=== PATIENT | female | born 1980 | race African-American/Black ===

== ENCOUNTER 2016-06-22 19:24 | Emergency (ER) | payer MEDICARE | END 2016-06-22 21:05 | disposition home or self-care (01) | LOC: D.ER 19:24 | DX: S93.402A Sprain of unspecified ligament of left ankle, initial encounter (principal); W01.0XXA Fall on same level from slipping, tripping and stumbling without subsequent striking against object, initial encounter; Y93.89 Activity, other specified; Y92.89 Other specified places as the place of occurrence of the external cause; S39.012A Strain of muscle, fascia and tendon of lower back, initial encounter; G61.81 Chronic inflammatory demyelinating polyneuritis; F32.9 Major depressive disorder, single episode, unspecified; E11.9 Type 2 diabetes mellitus without complications; G62.9 Polyneuropathy, unspecified ==

== ENCOUNTER 2016-09-02 16:37 | Observation (INO) | payer MEDICARE ==
[~2016-09-02] VITALS: Ht 170.2 cm; Wt 131.1 kg
--- NOTE | 2016-09-02 17:15 | NUR ---
RECEIVED TO ROOM 2230 DIRECT ADMIT FROM DOCTOR'S OFFICE. GENERALIZED WEAKNESS. FAMILY AT BEDSIDE.
[2016-09-02] MEDS ORDERED: OMEPRAZOLE20 M1 PO (17:42)
[2016-09-02] MEDS ORDERED: CYCLOBENZAPRINE10 MG (17:43)
[2016-09-02] MEDS ORDERED: JANUVIA100 MG PO (17:43)
[2016-09-02] MEDS ORDERED: NEURONTIN600 MG PO (17:44)
[2016-09-02] MEDS ORDERED: CYMBALTA60 MG PO (17:45)
[2016-09-02] MEDS ORDERED: XANAX2 MG PO (17:45)
[2016-09-02] MEDS ORDERED: LATUDA40 MG (17:46)
[2016-09-02] MEDS ORDERED: COREG 3.1253.125 MG PO (17:47)
[2016-09-02] MEDS ORDERED: ULTRAM50 MG PO (17:47)
[2016-09-02] MEDS ORDERED: BUPROPION XL300 MG PO (17:48)
[2016-09-02] MEDS ORDERED: MECLIZINE HCL25 MG PO (17:48)
[2016-09-02] MEDS ORDERED: TOPAMAX25 MG PO (17:49)
[2016-09-02] MEDS ORDERED: SYNALAR 0.01 %60 ML TOPICAL (17:50)
[2016-09-02] MEDS ORDERED: LIDOCAINE 5 % O35 GM TOPICAL (17:50)
[2016-09-02 18:00] VITALS: BP 131/73; BMI 45.4
[2016-09-02 18:22] LABS: BASOPHILS 0.4 % (0-2); EOSINOPHILS 2.3 % (0-7); HEMOGLOBIN 10.3 g/dL (12-16); IMMATURE GRANULOCYTES 0.3 % (0-5); LYMPHOCYTES 35.2 % (15-50); MCH 20.2 pg (26.0-34.0); MCHC 31.2 g/dL (31.0-37.0); MCV 64.7 fL (80.0-100.0); MONOCYTES 7.6 % (2-11); NEUTROPHILS 54.2 % (40-80); PLATELET COUNT 336 10x3/uL (130-400); RDW 17.9 % (11.5-14.5); WBC 11.2 10x3/uL (4.8-10.8)
[2016-09-02 18:25] LABS: ALBUMIN 3.2 g/dL (3.4-5.0); ALKALINE PHOSPHATASE 115 U/L (46-116); BILIRUBIN - TOTAL 0.15 mg/dL (0.2-1.3); CALC OSMOLALITY 266 mosm/kg (275-300); CALCIUM 8.6 mg/dL (8.5-10.1); CARBON DIOXIDE 22.7 mmol/L (21.0-32.0); CHLORIDE - SERUM 103 mmol/L (98-107); CREATININE - SERUM 0.9 mg/dL (0.6-1.3); GLUCOSE 112 mg/dL (74-106); POTASSIUM - SERUM 3.5 mmol/L (3.5-5.1); PROTEIN - SERUM 7.5 g/dL (6.4-8.2); SODIUM 133 mmol/L (136-145); UREA NITROGEN 13 mg/dL (7-18); eGFR NON AFRICAN AMERICAN 75 mL/min (90-120)
--- NOTE | 2016-09-02 18:30 | NUR ---
CONSULT CALLED TO DR JULIO. DENTAL AIDE SHOWING SR 91 PER TECH.
[2016-09-02 18:44] LABS: ALT (SGPT) 23 U/L (10-68)
[2016-09-02 19:00] VITALS: BP 126/86
--- NOTE | 2016-09-02 19:30 | NUR ---
RECIEVED SHIFT REPORT. PT IS LYING IN BED. ALERT AND ORIENTED AND ABLE TO VERBALIZE NEEDS. IV TO BE SITED BY DAY NURSE. PT IS AMBULATORY WITH ASSISTANCE. PT STATES PAIN IS 8/10. PT REQUESTING SOMETHING FOR PAIN. WILL CALL MD FOUR H AGENT. NO FURTHER NEEDS AT THIS TIME. VISITOR AT BEDSIDE. WILL CONTINUE TO MONITOR. SIDE RAILS ARE UP X 2. BED IS IN LOWEST POSITION. BOX ALARM PLACED ON FOR SAFETY. CALL LIGHT IS WITHIN REACH.
--- NOTE | 2016-09-02 20:46 | NUR ---
SHIFT ASSESSMENT COMPLETED. FLUIDS HOOKED UP PER ORDER. MEDICATIONS ADMINISTERED PER ORDER. PT C/O PAIN 10/30. ADMINISTERED PRESCRIBED PRN ULTRAM PER ORDER. DENIES FURTHER NEEDS AT THIS TIME. WILL MONITOR. SIDE RAILS X 2. BED LOW. BOX ALARM ON. VISITOR AT BEDSIDE. CALL LIGHT IN REACH.
[2016-09-03] VITALS: BP 104/62
[2016-09-03 04:00] VITALS: BP 132/87
[2016-09-03 05:18] LABS: BASOPHILS 0.1 % (0-2); EOSINOPHILS 0 % (0-7); HEMATOCRIT 33.8 % (36.0-48.0); HEMOGLOBIN 10.5 g/dL (12-16); IMMATURE GRANULOCYTES 0.4 % (0-5); LYMPHOCYTES 10.4 % (15-50); MCHC 31.1 g/dL (31.0-37.0); MCV 64.3 fL (80.0-100.0); MONOCYTES 0.7 % (2-11); NEUTROPHILS 88.4 % (40-80); PLATELET COUNT 340 10x3/uL (130-400); RBC 5.26 10x6/uL (4.00-5.40); RDW 17.7 % (11.5-14.5); WBC 10.2 10x3/uL (4.8-10.8)
[2016-09-03 05:44] LABS: ALBUMIN 3.3 g/dL (3.4-5.0); ALKALINE PHOSPHATASE 109 U/L (46-116); ALT (SGPT) 25 U/L (10-68); CALCIUM 8.7 mg/dL (8.5-10.1); CHLORIDE - SERUM 103 mmol/L (98-107); CREATININE - SERUM 0.9 mg/dL (0.6-1.3); PROTEIN - SERUM 8.2 g/dL (6.4-8.2); SODIUM 135 mmol/L (136-145); UREA NITROGEN 14 mg/dL (7-18); eGFR NON AFRICAN AMERICAN 75 mL/min (90-120)
[2016-09-03 05:50] LABS: CALC OSMOLALITY 278 mosm/kg (275-300); GLUCOSE 236 mg/dL (74-106); POTASSIUM - SERUM 4.2 mmol/L (3.5-5.1)
[2016-09-03 07:57] VITALS: BP 140/77
--- NOTE | 2016-09-03 07:58 | NUR ---
PT AOX4 RESP EVEN AND NONLABORED PT DENIES NEEDS AT THIS TIME IV TO RIGHT HAND PATENT AND INTACT SRX2 BED AT LOWEST SETTING CALL LIGHT WITHIN REACH WILL CONTINUE TO MONITOR
[2016-09-03 08:03] LABS: APPEARANCE CLEAR (CLEAR); BILIRUBIN NEGATIVE (NEGATIVE); COLOR YELLOW (YELLOW); GLUCOSE 100 mg/dL (NEGATIVE); KETONE NEGATIVE (NEGATIVE); LEUKOCYTE ESTERASE NEGATIVE (NEGATIVE); NITRITE NEGATIVE (NEGATIVE); PROTEIN NEGATIVE (NEGATIVE); SPECIFIC GRAVITY 1.015 (1.005-1.020); UROBILINOGEN NORMAL (NORMAL)
[2016-09-03 11:35] VITALS: BP 132/68
[2016-09-03 11:51] VITALS: BP 132/68
[2016-09-03 14:38] VITALS: Ht 170.2 cm; Wt 131.1 kg
[2016-09-03 15:37] VITALS: BP 128/64
--- NOTE | 2016-09-03 16:02 | NUR ---
Patient Name: WONG MILES Admission Status: Urgent Accout number: [id number] Admission Date: 09-02-2016 : 1980 Admission Diagnosis:WEAKNESS Attending: JORGE Current LOS: 1 Anticipated DC Date: 09-04-2016 Planned Disposition: Inpatient Rehab Primary Insurance: MEDICARE A & B Discharge Planning Comments: CM MET WITH PATIENT REGARDING D/C NEEDS AND PLANS. PATIENT STATED SHE LIVES WITH HER MOM THAT IS DISABLED AND WILL HAVE SOMEONE PICK HER UP AT DISCHARGE. PATIENT STATES SHE HAS BEEN FALLING AT HOME LATELY. PATIENTS PCP IS DR. WALKER AND PHARMACY IS [facility] ON [address]. PATIENT HAS AN ELEC. WHEELCHAIR, SHOWER CHAIR, BSC, CANE, WALKER, AND GLUCOMETER AT HOME. PATIENT HAS A REFERRAL IN FOR IP REHAB. CM WILL CONTINUE TO FOLLOW PATIENT WITH D/C NEEDS AND PLANS. PCP DR. DENISE SNELL ON [facility]) [phone] Transportation Engineering Technician: Jeanna Oscar Is the patient Alert and Oriented? Yes 0 * How many steps to enter\exit or inside your home? 0 0 * PCP DR. WALKER 0 * Pharmacy [facility] [address] 0 * Preadmission Environment Home with Family 0 * ADLs Independent 0 * Equipment Bedside Commode Cane Glucometer Shower Chair Walker 0 * Other Equipment ELEC WHEELCHAIR 0 * List name and contact numbers for known caregivers / representatives who currently or will assist patient after discharge: [facility] [phone] ([facility] – [place]) 0 * Community resources currently utilized None 0 * Additional services required to return to the preadmission environment? Yes 0 * Can the patient safely return to the preadmission environment? Yes 0 * Has this patient been hospitalized within the prior 30 days at any hospital? No 0 Grand Total: 0
--- NOTE | 2016-09-03 16:31 | NUR ---
Rehab Prescreening Consult recieved and the chart has been reviewed. She is an excellent IRF candidate. She is to start treatment with IV IGG today per the orders. She will be accepted to the rehab unit tomorrow if the physician agrees. The CM Susanne Marcus RN has been made aware. Thank you for the referral. Roberta Dubon RN Clinical Liaison, Rehab
--- NOTE | 2016-09-03 19:40 | NUR ---
ASSESSMENT COMPLETED, NO ACUTE DISTRESS NOTED, FAMILY IN ROOM, IVIG INFUSING WITH EASE, REFUSES SCD'S, SR'S UP, ALARM ON, CL IN REACH, WILL MONITOR
--- NOTE | 2016-09-03 21:27 | NUR ---
PRN TORADOL GIVEN FOR C/O PAIN 11/30, SARABJIT WELL, CL IN REACH
--- NOTE | 2016-09-03 22:14 | NUR ---
PT REQUESTING INCREASE IN TORADOL DOSE, PAGED
[2016-09-04] VITALS: BP 147/81
--- NOTE | 2016-09-04 01:08 | NUR ---
RESTING WITH EYES CLOSED, NO DISTRESS NOTED, FALL PRECAUTIONS IN PLACE, ALARM ON, CL IN REACH
[2016-09-04 04:00] VITALS: BP 137/80
--- NOTE | 2016-09-04 07:20 | NUR ---
PT REC'D FROM JACQUELINE AWAD. RESTING IN BED ON PHONE WITH SISTER. AAOX4. NO COMPLAINTS OF PAIN. BED LOW, CALL LIGHT IN REACH, DENIES NEEDS. CPOC.
[2016-09-04 08:04] VITALS: BP 145/88
--- NOTE | 2016-09-04 12:24 | NUR ---
DR. WALKER PAGED PER PT REQUEST REGARDING RESTARTING HOME MEDICATIONS AND INCREASING PAIN MEDICATION DOSE.
[2016-09-04 12:26] VITALS: BP 132/64
--- NOTE | 2016-09-04 15:04 | NUR ---
CM REASSESSMENT NOTE: PATIENT IS DISCHARGING TO IP REHAB TODAY.
--- NOTE | 2016-09-04 15:28 | NUR ---
SPOKE WITH DR. WALKER. NEW ORDERS REC'D. PRN PAIN MEDICATION ADMINISTERED PER PT COMPLAINTS OF 9/10 LEG PAIN. WILL REASSESS.
[2016-09-04 15:47] VITALS: BP 156/94
[2016-09-04] MEDS ORDERED: PRIVIGEN 110 GM/100 IV (16:50)
--- NOTE | 2016-09-04 17:30 | NUR ---
IVIG STARTED PER MAR. FLOW RATE CALCULATED AND STARTED AT LOWEST RATE OF 78.5ML/HR. VSS. PT TOLERATING WELL. WILL MONITOR CLOSELY.
--- NOTE | 2016-09-04 19:05 | NUR ---
PT REPORT CALLED TO JACQUELINE FONSECA, IN REHAB.
--- NOTE | 2016-09-04 19:19 | NUR ---
WITHOUT NEEDS,WITHOUT DISTRESS.CALL LIGHT IN REACH
== END 2016-09-04 19:30 ==
LOC: D.MS 16:37 → OBSVTIME 16:38 → D.MS 09-04 19:30
PROVIDERS: ADMIT Family Medicine
DX: G61.81 Chronic inflammatory demyelinating polyneuritis (principal); E87.1 Hypo-osmolality and hyponatremia; E11.9 Type 2 diabetes mellitus without complications; I10 Essential (primary) hypertension; D64.9 Anemia, unspecified

== ENCOUNTER 2016-09-04 19:49 | Inpatient (IN) | payer MEDICARE ==
[~2016-09-04] VITALS: Ht 170.2 cm; Wt 133.1 kg
[~2016-09-04 19:49] MED LIST: BUPROPION XL300 MG PO; COREG 3.1253.125 MG PO; CYCLOBENZAPRINE10 MG; CYMBALTA60 MG PO; JANUVIA100 MG PO; LATUDA40 MG; LIDOCAINE 5 % O35 GM TOPICAL; MECLIZINE HCL25 MG PO; NEURONTIN600 MG PO; OMEPRAZOLE20 M1 PO; PRIVIGEN 110 GM/100 IV; SYNALAR 0.01 %60 ML TOPICAL; TOPAMAX25 MG PO; ULTRAM50 MG PO; XANAX2 MG PO
--- NOTE | 2016-09-04 19:55 | NUR ---
PT RECEIVED TO UNIT AT 1945 VIA PERSONAL MOTORIZED WHEELCHAIR WITH MOTHER AND HOSPITAL STAFF. TRANSFERRED TO BED WITH MOD ASSIST. ORIENTED TO ROOM. EXPLAINED THAT MEDICATIONS NEEDED TO ORDERED WOULD BE ADMINISTER WHEN AVAILABLE. CALL LIGHT IN REACH.
[2016-09-04 23:44] VITALS: BP 145/94
--- NOTE | 2016-09-05 00:30 | NUR ---
PT IN BED WITH EYES OPEN. ASSESSMENTS COMPLETED WITH DOCUMENTATION SIGNED. REQUEST ADDITIONAL PILLOW AND PROVIDED. NO OTHER CONCERNS MADE KNOWN AT THIS TIME. CALL LIGHT IN REACH.
--- NOTE | 2016-09-05 05:41 | NUR ---
PT IN BED WITH EYES CLOSED AND CHEST RISING. EASILY AROUSED TO VERBAL STIMULI. NO CONCERNS OR COMPLAINTS MADE KNOWN. CALL LIGHT IN REACH.
[2016-09-05 06:31] LABS: BASOPHILS 0.1 % (0-2); EOSINOPHILS 0 % (0-7); HEMATOCRIT 29.3 % (36.0-48.0); HEMOGLOBIN 9.1 g/dL (12-16); IMMATURE GRANULOCYTES 0.4 % (0-5); LYMPHOCYTES 14.5 % (15-50); MCHC 31.1 g/dL (31.0-37.0); MCV 64.5 fL (80.0-100.0); MEAN PLATELET VOLUME 9.9 fL (7.4-10.4); MONOCYTES 7.8 % (2-11); NEUTROPHILS 77.2 % (40-80); PLATELET COUNT 330 10x3/uL (130-400); RBC 4.54 10x6/uL (4.00-5.40); RDW 17.7 % (11.5-14.5); WBC 17.5 10x3/uL (4.8-10.8)
[2016-09-05 06:41] LABS: CALC OSMOLALITY 280 mosm/kg (275-300); CALCIUM 8.2 mg/dL (8.5-10.1); CARBON DIOXIDE 26.6 mmol/L (21.0-32.0); CHLORIDE - SERUM 104 mmol/L (98-107); CREATININE - SERUM 0.8 mg/dL (0.6-1.3); POTASSIUM - SERUM 4.2 mmol/L (3.5-5.1); SODIUM 139 mmol/L (136-145); UREA NITROGEN 19 mg/dL (7-18); eGFR NON AFRICAN AMERICAN 86 mL/min (90-120)
[2016-09-05 06:48] LABS: GLUCOSE 124 mg/dL (74-106)
--- NOTE | 2016-09-05 07:04 | NUR ---
RESTING QUIETLY IN BED. EYES CLOSED. CALL LIGHT IN REACH
[2016-09-05 07:30] VITALS: BP 147/95
--- NOTE | 2016-09-05 07:35 | NUR ---
PT SITTING UP IN BED EYES OPEN ALERT AND ORIENTED X4 PLEASANT AFFECT. ASSISTED TO RESTROOM STANDBY ASSIST.
--- NOTE | 2016-09-05 09:40 | NUR ---
PT IN PHYS THERAPY
--- NOTE | 2016-09-05 10:35 | NUR ---
PT SITTING UP IN BED EYES CLOSED RESTING. ALERT AND ORIENTED X4, GENERALIZED PAIN 2/10 TOLERABLE PER PT
--- NOTE | 2016-09-05 11:30 | NUR ---
PT IN THERAPY
--- NOTE | 2016-09-05 13:44 | NUR ---
PT LYING IN BED HOB 45 DEGREES EYES CLOSED RESTING QUIETLY
[2016-09-05 15:16] VITALS: Ht 170.2 cm; Wt 133.1 kg
--- NOTE | 2016-09-05 16:25 | NUR ---
PATIENT ADMITTED TO REHAB FROM ACUTE FLOOR. DR. WALKER IS PCP, [facility] IS HER PHARMACY. DME AT HOME : ELECTRIC WHEELCHAIR, SHOWER CHAIR, WALKER, CANE BSC, AND GLUCOMETER. SHE WILL RETURN HOME WITH HER MOTHER AT DISCHARGE. WILL CONTINUE TO FOLLOW WITH PATIENT
[2016-09-05 16:30] VITALS: BP 130/81
--- NOTE | 2016-09-05 17:32 | NUR ---
PT SITTING UP IN BED 90 DEGREES VISITING WITH FAMILY. CALL LIGHT IN REACH. NO CONCERNS VOICED AT THIS TIME
--- NOTE | 2016-09-05 19:15 | NUR ---
PT IN BED WITH HOB UP FOR COMFORT. TV ON. EYES CLOSED. CHEST RISING AND FALLING. WALKER. FSBS ACHS. NO O2. RIGHT HAND IVIG INFUSING @ 160 ML/HR. BED IN LOWEST POSITION AND CALL LIGHT WITHIN REACH.
[2016-09-05 20:16] VITALS: BP 135/86
--- NOTE | 2016-09-05 21:45 | NUR ---
PATIENT'S PRIMARY NURSE HAVING DIFFICULTY WITH AN AIR-IN-LINE ALARM. CONSOLIDATED ALL OF THE FINE AIR BUBBLES DISPERSED IN TUBING ABOVE BUBBLE DETECTOR IN PUMP. USING EMPTY SYRINGE I ASPIRATED AIR FROM IV LINE. THUMPED IV BAG REPEATEDLY TO DISLODGE BUBBLES COLLECTED IN INFUSION PORTS AT BOTTOM OF BAG AND SIDES OF BAG, VERIFIED THAT THERE ARE NO INLINE BUBBLES, AND THEN RESTARTED PUMP. HIGH VISCOSITY AND SURFACE TENSION OF OCTIGAN MEDICATION CAUSES IT TO RETAIN SUSPENDED AIR BUBBLES. PATIENT DENIES CURRENT NEEDS.
--- NOTE | 2016-09-05 23:15 | NUR ---
PT IN BED WITH HOB UP FOR COMFORT. EYES CLOSED. RESPIRATIONS EVEN AND UNLABORED. BED IN LOWEST POSITION AND CALL LIGHT WITHIN REACH.
--- NOTE | 2016-09-06 03:15 | NUR ---
PT LYING IN BED. EYES CLOSED. CHEST RISING AND FALLING. BED IN LOWEST POSITION AND CALL LIGHT WITHIN REACH.
--- NOTE | 2016-09-06 05:44 | NUR ---
ASSISTED PT TO BATHROOM AND BACK TO BED.
[2016-09-06 08:00] VITALS: BP 133/85
--- NOTE | 2016-09-06 08:00 | NUR ---
IN THERAPY;BREAKFAST GIVEN.SARABJIT WELL.
--- NOTE | 2016-09-06 12:00 | NUR ---
EATING LUNCH.FAMILY VISITING.
--- NOTE | 2016-09-06 17:15 | NUR ---
IV RESITED TO LFA;22GA.
--- NOTE | 2016-09-06 19:50 | NUR ---
PT. IN BED WITH HOB UP FOR COMFORT AND IS WATCHING TV. NO VOICED NEEDS AT THIS TIME. ASSESSMENT COMPLETED. IV INFUSING VIA PUMP INTO LEFT FA WITHOUT ANY ALARMS. CALL LIGHT WITHIN REACH.
[2016-09-06 20:06] VITALS: BP 128/73
--- NOTE | 2016-09-06 23:21 | NUR ---
PT. IN BED WITH HOB UP FOR COMFORT WITH EYES CLOSED AND RESP. DEEP AND EVEN. CALL LIGHT WITHIN REACH.
--- NOTE | 2016-09-07 03:08 | NUR ---
PT. IN BED WITH HOB UP FOR COMFORT WITH EYES CLOSED AND RESP. EVEN. CALL LIGHT WITHIN REACH.
[2016-09-07 08:00] VITALS: BP 108/63
--- NOTE | 2016-09-07 08:00 | NUR ---
SHIFT ASSMT COMPLETED.DENIES NEEDS.PLAN FOR AM SHOWER TODAY.CL IN REACH.BREAKFAST GIVEN
--- NOTE | 2016-09-07 12:00 | NUR ---
LUNCH EATEN.SHOWER TAKEN;BED LINENS CHANGED.
--- NOTE | 2016-09-07 16:00 | NUR ---
RESTING QUIETLY IB BED
--- NOTE | 2016-09-07 19:35 | NUR ---
CHANGED OUT PT BED, PT AMBULATED WITH WALKER, GAIT CONTROLLED AND STEADY. PT DENIES PAIN.
--- NOTE | 2016-09-07 19:40 | NUR ---
PT IN BED WITH HOB UP FOR COMFORT. WATCHING TV. ALERT & ORIENTED. LEFT FA IVIG OCTAGAM RUNNING AT 130 ML/HR. FSBS ACHS. WALKER. PT HAS NO COMPLAINTS AT THIS TIME. BED IN LOWEST POSITION AND CALL LIGHT WITHIN REACH.
[2016-09-07 21:17] VITALS: BP 150/86
--- NOTE | 2016-09-07 23:40 | NUR ---
PT IN BED WITH HOB UP FOR COMFORT. WATCHING TV. BED IN LOWEST POSITION AND CALL LIGHT WITHIN REACH.
--- NOTE | 2016-09-08 03:40 | NUR ---
PT IN BED WITH HOB UP FOR COMFORT. EYES CLOSED. CHEST RISING AND FALLING. BED IN LOWEST POSITION AND CALL LIGHT WITHIN REACH.
--- NOTE | 2016-09-08 07:13 | NUR ---
RESTING QUIETLY IN BED CALL LIGHT IN REACH
--- NOTE | 2016-09-08 07:20 | NUR ---
PT LYING IN BED EYES CLOSED RESTING QUIETLY. EASILY AROUSED TO STIMULI. ALERT AND ORIENTED X4. PLEASANT AFFECT. C/O HEAD HURTING 06/30 DOES NOT WANT ANYTHING AT THIS TIME. CALL LIGHT IN REACH.
[2016-09-08 07:45] VITALS: BP 125/86
--- NOTE | 2016-09-08 10:00 | NUR ---
PT IN THERAPY
--- NOTE | 2016-09-08 12:00 | NUR ---
PT SITTING UP IN WHEELCHAIR VISITING WITH FAMILY. NO CONCERNS VOICED AT THIS TIME. CALL LIGHT IN REACH.
--- NOTE | 2016-09-08 14:00 | NUR ---
PT IN THERAPY
--- NOTE | 2016-09-08 16:00 | NUR ---
PT LYING IN BED RESTING QUIETLY EYES CLOSED. EASILY AROUSED WITH STIMULI. CALL LIGHT IN REACH
[2016-09-08 16:45] VITALS: BP 121/87
--- NOTE | 2016-09-08 18:23 | NUR ---
PT SITTING UP IN BED EATING DINNER. PT STATES "HEAD IS FEELING MUCH BETTER NOW". CALL LIGHT IN REACH
[2016-09-08 19:00] VITALS: BP 127/71
--- NOTE | 2016-09-08 20:00 | NUR ---
PT IN BED WITH HOB UP FOR COMFORT. WATCHING TV. VISITOR IN ROOM. ALERT & ORIENTED. FSBS ACHS. NO 02. LEFT FA SALINE LOC. BED IN LOWEST POSITION AND CALL LIGHT WITHIN REACH.
--- NOTE | 2016-09-09 | NUR ---
PT IN BED WITH HOB UP FOR COMFORT. EYES CLOSED. CHEST RISING AND FALLING. BED IN LOWEST POSITION AND CALL LIGHT WITHIN REACH.
--- NOTE | 2016-09-09 02:30 | NUR ---
PT RESTING QUIETLY, EYES CLOSED, RESPIRATIONS REGULAR AND UNLABORED, NO S/S OF ACUTE DISTRESS. PT WHEN AWAKE, USES WALKER WITH NO CUING REQUIRED.
--- NOTE | 2016-09-09 04:00 | NUR ---
PT LYING IN BED. EYES CLOSED. RESPIRATIONS EVEN AND UNLABORED. BED IN LOWEST POSITION AND CALL LIGHT WITHIN REACH.
[2016-09-09 10:27] VITALS: BP 124/75
--- NOTE | 2016-09-09 19:34 | NUR ---
RESTING QUIETLY IN BED. CALL LIGHT IN REACH
--- NOTE | 2016-09-09 19:35 | NUR ---
PT. SITTING UP IN W/C AND FEMALE VISITOR WORKING ON PT'S HAIR. PT. DENIES ANY NEEDS AT THIS TIME AND HER CALL LIGHT IS WITHIN REACH. ASSESSMENT COMPLETED.
[2016-09-09 20:15] VITALS: BP 128/85
--- NOTE | 2016-09-09 23:05 | NUR ---
PT. IN BED WITH HOB UP FOR COMFORT WITH EYES CLOSED AND RESP. DEEP AND EVEN. CALL LIGHT WITHIN REACH.
--- NOTE | 2016-09-10 03:00 | NUR ---
PT. IN BED WITH HOB UP FOR COMFORT WITH EYES CLOSED AND RESP. DEEP AND EVEN. LE'S ELEVATED ON PILLOWS TO HELP WITH EDEMA. CALL LIGHT WITHIN REACH.
--- NOTE | 2016-09-10 06:09 | NUR ---
PT. IN BED WITH HOB UP FOR COMFORT WITH EYES CLOSED AND RESP. DEEP AND EVEN. PT. AWAKENED EASILY FOR AM MEDS AND HAS NO VOICED NEEDS. CALL LIGHT WITHIN REACH.
[2016-09-10 07:26] LABS: BASOPHILS 0.5 % (0-2); EOSINOPHILS 2.5 % (0-7); HEMATOCRIT 31.8 % (36.0-48.0); HEMOGLOBIN 9.8 g/dL (12-16); IMMATURE GRANULOCYTES 0.5 % (0-5); LYMPHOCYTES 31.9 % (15-50); MCH 20.5 pg (26.0-34.0); MCHC 30.8 g/dL (31.0-37.0); MCV 66.7 fL (80.0-100.0); MEAN PLATELET VOLUME 9.8 fL (7.4-10.4); MONOCYTES 10.3 % (2-11); NEUTROPHILS 54.3 % (40-80); RBC 4.77 10x6/uL (4.00-5.40); RDW 17.7 % (11.5-14.5); WBC 8.2 10x3/uL (4.8-10.8)
[2016-09-10 07:34] LABS: PLATELET COUNT 398 10x3/uL (130-400)
[2016-09-10 07:57] LABS: CALC OSMOLALITY 267 mosm/kg (275-300); CALCIUM 8.3 mg/dL (8.5-10.1); CARBON DIOXIDE 24.6 mmol/L (21.0-32.0); CHLORIDE - SERUM 102 mmol/L (98-107); CREATININE - SERUM 0.8 mg/dL (0.6-1.3); GLUCOSE 89 mg/dL (74-106); POTASSIUM - SERUM 3.9 mmol/L (3.5-5.1); SODIUM 134 mmol/L (136-145); UREA NITROGEN 16 mg/dL (7-18); eGFR NON AFRICAN AMERICAN 86 mL/min (90-120)
--- NOTE | 2016-09-10 08:00 | NUR ---
SHIFT ASSMT COMPLETED.
[2016-09-10 09:11] VITALS: BP 139/95
--- NOTE | 2016-09-10 19:15 | NUR ---
PT AWAKE, WATCHING TV, INFORMED PT THAT I WILL BE IN SHORTLY TO DO ASSESSMENT, PT VERBALIZES UNDERSTANDING, DENIES NEEDS AT THIS TIME
[2016-09-10 20:45] VITALS: BP 120/76
--- NOTE | 2016-09-10 20:45 | NUR ---
ASSESSMENT PER FLOW SHEET, VS OBTAINED, SALINE LOCK IN LEFT FA INTACT WITH NO REDNESS OR EDEMA, PT REPORTS FLATUS, NO BM AND VOIDING BY SELF WITH NO DIFFICULTY, PT REPORTS USING WALKER PER SELF TO BR, INFORMED PT THAT IF SHE NEEDED ANY HELP FOR HER TO USE CALL LIGHT FOR ANY ASSISTANCE, PT VERBALIZES UNDERSTANDING, DENIES NEEDS AT THIS TIME, BED IN LOW POSITION, SIDE RAILS X 2, CALL LIGHT IN REACH
--- NOTE | 2016-09-10 21:31 | NUR ---
PT RESTING WITH EYES CLOSED, AROUSES TO SOFT VERBAL STIMULATION, ADM 2100 MEDS PO PER MD ORDERS, WITH FRESH H20, FSBS 115, SNACK PROVIDED, PT DENIES NEEDS AT THIS TIME
--- NOTE | 2016-09-10 22:30 | NUR ---
PT RESTING WITH EYES CLOSED, RESP QUIE, NO DISTRESS NOTED, LEFT UNDISTURBED AT THIS TIME, BED IN LOW POSITION, SIDE RAILS X 2, CALL LIGHT IN REACH
--- NOTE | 2016-09-11 | NUR ---
PT RESTING WITH EYES CLOSED, RESP QUIET, NO DISTRESS NOTED, LEFT UNDISTURBED AT THIS TIME, BED IN LOW POSITION, SIDE RAILS X 2, CALL LIGHT IN REACH
--- NOTE | 2016-09-11 04:05 | NUR ---
PT RESTING WITH EYES CLOSED, RESP QUIET, NO DISTRESS NOTED, LEFT UNDISTURBED AT THIS TIME
--- NOTE | 2016-09-11 06:43 | NUR ---
PT RESTING WITH EYES CLOSED, AROUSES TO SOFT VERBAL STIMULATION, ADM 0600 MEDS PO PER MD ORDERS, ADM ULTRAM FOR PAIN, SEE EMAR, FSBS 110, PT DENIES NEEDS AT THIS TIME
--- NOTE | 2016-09-11 06:59 | NUR ---
SHIFT REPORT TO DAY SHIFT
--- NOTE | 2016-09-11 07:10 | NUR ---
LYING IN BED EYES CLOSED RESTING QUIETLY. EASILY AROUSED WITH STIMULI. CALL LIGHT IN REACH.
--- NOTE | 2016-09-11 08:00 | NUR ---
BREAKFAST TRAY GIVEN.CL IN REACH.
--- NOTE | 2016-09-11 09:00 | NUR ---
SITTING UP IN BED EATING BREAKFAST. ALERT AND ORIENTED X4. C/O RIGHT LOWER LEG HURTING. NO REDNESS OR SWELLING. STATES SHE DID USE WEIGHTS IN THERAPY YESTERDAY FOR THE FIRST TIME. NO PAIN MEDS GIVEN AT THIS TIME AND WILL CONSULT WITH PT. CALL LIGHT IN REACH
[2016-09-11 09:12] VITALS: BP 112/67
--- NOTE | 2016-09-11 10:04 | NUR ---
Nutrition Monitoring and Eval: Pt is eating 75% meal avg on a diabetic diet. +BM 09/10/16. Labs and meds reviewed. Pt remains at low nutritional risk. RD will continue to monitor pt progress per policy.
--- NOTE | 2016-09-11 11:16 | NUR ---
IN GYM WITH PHYS THERAPY TOLERATING WELL
--- NOTE | 2016-09-11 13:38 | NUR ---
SITTING UP IN WHEELCHAIR VISITING FAMILY. C/O RIGHT LOWER LEG STILL BOTHERING HER THROBBING AND RADIATING DOWN INTO HER ANKLE. NO REDNESS OR SWELLING PRESENT. CALL LIGHT IN REACH.
--- NOTE | 2016-09-11 15:30 | NUR ---
IN GYM WITH OT.
--- NOTE | 2016-09-11 17:20 | NUR ---
OUTSIDE ON PATIO WITH FAMILY PLAYING CARDS. DENIES NEEDS AT THIS TIME.
--- NOTE | 2016-09-11 18:43 | NUR ---
DC IV IN LEFT FOREARM CATHETER INTACT.
[2016-09-11 19:30] VITALS: BP 176/97
--- NOTE | 2016-09-11 19:42 | NUR ---
PT IS RESTING IN BED TALKING ON HER TELEPHONE. ALERT AND ORIENTED X 4. DENIES ACUTE PAIN OR DISCOMFORT AT THIS TIME. NO ACUTE DISTRESS NOTED. SR'S ARE UP X 2 IN BED. CALL LIGHT AND BEDSIDE TABLE ARE WITHIN EASY REACH.
--- NOTE | 2016-09-11 21:20 | NUR ---
PT IS RESTING IN BED TALKING ON HER CELL PHONE. NO NEEDS VOICED.
--- NOTE | 2016-09-11 23:50 | NUR ---
IN BED, EYES CLOSED. HOB UP 20 DEGREES. APPEARS COMFORTABLE.
--- NOTE | 2016-09-12 03:00 | NUR ---
RESTING QUIETLY IN BED WITH EYES CLOSED. RESPS ARE EVEN AND UNLABORED. NO ACUTE DISTRESS NOTED.
--- NOTE | 2016-09-12 07:30 | NUR ---
RESTING QUIETLY IN BED CALL LIGHT IN REACH
[2016-09-12 08:00] VITALS: BP 137/77
--- NOTE | 2016-09-12 08:00 | NUR ---
PATIENT ALERT/ORIENT X4. SITTING UP IN BED TO EAT BREAKFAST. VOICES NO NEEDS AT THIS TIME. CALL LIGHT WITHIN REACH
--- NOTE | 2016-09-12 10:43 | NUR ---
PATIENT IN REHAB ROOM. WORKING WITH PHYSICAL THERAPIST. PRN PAIN MEDICATION GIVEN
--- NOTE | 2016-09-12 15:30 | NUR ---
PATIENT TALKING SELF TO BATHROOM WITH WHEELED WALKER. STEADY GIAT. PATIENT HAS VISITORS IN ROOM.
--- NOTE | 2016-09-12 18:15 | NUR ---
PRN PAIN MEDICATION GIVEN FOR A HEADACHE.
[2016-09-12 19:30] VITALS: BP 138/77
--- NOTE | 2016-09-12 19:35 | NUR ---
PT IN BED WITH HOB UP FOR COMFORT. WATCHING TV. ALERT & ORIENTED. FSBS BID. NO O2. NO IV. BED IN LOWEST POSITION AND CALL LIGHT WITHIN REACH.
--- NOTE | 2016-09-12 23:35 | NUR ---
PT IN BED WITH HOB UP FOR COMFORT. EYES CLOSED. CHEST RISING AND FALLING. BED IN LOWEST POSITION AND CALL LIGHT WITHIN REACH.
--- NOTE | 2016-09-13 03:35 | NUR ---
PT IN BED WITH HOB UP FOR COMFORT. EYES CLOSED. RESPIRATIONS EVEN AND UNLABORED. BED IN LOWEST POSITION AND CALL LIGHT WITHIN REACH.
--- NOTE | 2016-09-13 03:45 | NUR ---
RESTING IN BED ON LEFT SIDE. APPEARS COMFORTABLE.
--- NOTE | 2016-09-13 07:14 | NUR ---
RESTING IN BED QUIETLY. CALL LIGHT IN REACH
[2016-09-13 07:45] VITALS: BP 138/79
--- NOTE | 2016-09-13 13:47 | NUR ---
RESTING QUIETLY IN BED. JUST ASKED FOR AND RECIEVED PAIN MEDICATION FOR C/O PAIN TO LEGS. CALL LIGHT IN REACH
--- NOTE | 2016-09-13 17:11 | NUR ---
SITTING UPIN BED WATCHING TV AND TALKING ON PHONE. CALL LIGHT IN REACH
--- NOTE | 2016-09-13 19:10 | NUR ---
SISTER TALK TO PT IN BEDSIDE.
--- NOTE | 2016-09-13 21:30 | NUR ---
SIT UP IN BED AND WATCH TV.
[2016-09-13 23:39] VITALS: BP 121/67
--- NOTE | 2016-09-14 03:38 | NUR ---
REST QUIELY IN BED, EYE CLOSE, BED LOW, CALL LIGHT WITHIN REACH.
--- NOTE | 2016-09-14 03:56 | NUR ---
PT RESINTING QUIETLY, HOB ELEVATED NO S/S OF ACUTE DISTRESS.
[2016-09-14 07:53] VITALS: BP 125/87
--- NOTE | 2016-09-14 10:11 | NUR ---
RESTING QUIETLY IN BED WATCHING TV. DENIES NEEDS CALL LIGHT IN REACH
--- NOTE | 2016-09-14 13:56 | NUR ---
RESTING QUIETLY IN BED CALL LIGHT IN REACH
--- NOTE | 2016-09-14 17:59 | NUR ---
LAYING IN BED WATCHING TV. DENIES PAIN AT PRESENT. CALL LIGHT IN REACH
--- NOTE | 2016-09-14 19:15 | NUR ---
PT IN BED WITH HOB UP FOR COMFORT. WATCHING TV. ALERT & ORIENTED. FSBS BID. NO O2. NO IV. PT STATES SHE HAS A PAIN LEVEL OF 7/10 IN HER RIGHT LEG. BED IN LOWEST POSITION AND CALL LIGHT WITHIN REACH.
--- NOTE | 2016-09-14 20:30 | NUR ---
PT. IN BED WITH HOB UP FOR COMFORT AND WATCHING TV. NO VOICED NEEDS AT THIS TIME AND SHE HAS HER CALL LIGHT WITHIN REACH.
[2016-09-14 20:57] VITALS: BP 132/87
--- NOTE | 2016-09-15 00:30 | NUR ---
PT IN BED WITH HOB UP FOR COMFORT. WATCHING TV. BED IN LOWEST POSITION AND CALL LIGHT WITHIN REACH.
--- NOTE | 2016-09-15 04:30 | NUR ---
RESTING QUIETLY. BED IN LOWEST POSITION AND CALL LIGHT WITHIN REACH.
[2016-09-15 07:02] LABS: BASOPHILS 0.7 % (0-2); HEMOGLOBIN 9.5 g/dL (12-16); IMMATURE GRANULOCYTES 0.7 % (0-5); LYMPHOCYTES 35.3 % (15-50); MCH 20.7 pg (26.0-34.0); MCHC 29.7 g/dL (31.0-37.0); MCV 69.9 fL (80.0-100.0); MEAN PLATELET VOLUME 9.8 fL (7.4-10.4); MONOCYTES 12.5 % (2-11); NEUTROPHILS 48.8 % (40-80); RBC 4.58 10x6/uL (4.00-5.40); RDW 18.9 % (11.5-14.5); WBC 7.1 10x3/uL (4.8-10.8)
[2016-09-15 07:10] LABS: CALC OSMOLALITY 268 mosm/kg (275-300); CALCIUM 8.4 mg/dL (8.5-10.1); CARBON DIOXIDE 22.3 mmol/L (21.0-32.0); CHLORIDE - SERUM 104 mmol/L (98-107); CREATININE - SERUM 0.7 mg/dL (0.6-1.3); GLUCOSE 88 mg/dL (74-106); POTASSIUM - SERUM 3.6 mmol/L (3.5-5.1); SODIUM 135 mmol/L (136-145); UREA NITROGEN 12 mg/dL (7-18); eGFR NON AFRICAN AMERICAN > 90 mL/min (90-120)
[2016-09-15 07:28] LABS: PLATELET COUNT 317 10x3/uL (130-400)
[2016-09-15 07:45] VITALS: BP 128/79
--- NOTE | 2016-09-15 07:45 | NUR ---
LYING IN BED EYES CLOSED RESTING QUIETLY. EASILY AROUSED WITH STIMULI. ALERT AND ORIENTED X4. C/O RIGHT ANKLE PAIN EXACERBATED WITH WALKING. NO REDNESS OR SWELLING TO AREA. ADVISED DR. KANG. CALL LIGHT IN REACH.
--- NOTE | 2016-09-15 09:45 | NUR ---
SITTING UP ON SIDE OF BED. PAIN IN RIGHT ANKLE IS EASING UP 5/10. NO OTHER CONCERNS VOICED AT THIS TIME. CALL LIGHT IN REACH.
--- NOTE | 2016-09-15 11:40 | NUR ---
IN GYM WITH OCCUPATIONAL THERAPY. TOLERATING WELL.
--- NOTE | 2016-09-15 13:14 | NUR ---
SITTING UP IN WHEELCHAIR WATCHING TV QUIETLY. PAIN IS TOLERABLE PER PATIENT. DENIES CONCERNS. CALL LIGHTIN REACH.
--- NOTE | 2016-09-15 15:43 | NUR ---
SITTING IN W/C TALKING ON PHONE. PAIN 5/10 RIGHT ANKLE. CALL LIGHT IN REACH
--- NOTE | 2016-09-15 17:36 | NUR ---
DISCUSSED DISCHARGE INSTRUCTIONS AND MEDICATIONS WITH PATIENT AND MOTHER. NO CONCERNS VOICED AT THIS TIME. CALLED IN [facility] TO [facility] ON [address] PER PT REQUEST.
--- NOTE | 2016-09-15 17:50 | NUR ---
ASSISTED PT AND FAMILY TO PRIVATE VEHICLE VIA ELECTRIC WHEELCHAIR AND PERSONAL BELONGINGS.
--- NOTE | 2016-09-16 09:42 | NUR ---
PATIENT DISCHARGED LAST EVENING DUE TO FAMILY EMERGENCY. [facility] WILL FOLLOW WITH PATIENT AT HOME. NO NEW DME NEEDED AT THIS TIME. DR. WALKER 09/19/16 @ 2:30, DR. JULIO 10/01/16 @ 11:00. PATIENT CHOICE FORM FOR HOME HEALTH AND [facility] FORM SIGNED, EXPLAINED AND FILED IN CHART. ORDERS HAVE BEEN FAXED WITH CONFORMATION RECIEVED
== END 2016-09-15 18:54 | disposition home health service (06) | DRG 74 ==
LOC: D.REHAB 19:49
PROVIDERS: ADMIT Emergency Medicine
DX: G61.81 Chronic inflammatory demyelinating polyneuritis (principal); Z68.42 Body mass index [BMI] 45.0-49.9, adult; E87.1 Hypo-osmolality and hyponatremia; I10 Essential (primary) hypertension; E11.9 Type 2 diabetes mellitus without complications; E66.01 Morbid (severe) obesity due to excess calories

== ENCOUNTER → 2016-09-24 12:53 | Outpatient (CLI) | payer MEDICARE ==
[2016-09-05 15:16] VITALS: BMI 45.9
[2016-09-24 13:20] LABS: HEMOGLOBIN A1C 5.6 % (4.8-6.0)
== END | disposition home or self-care (01) ==
LOC: D.LABREF 12:53
PROVIDERS: Family Medicine
DX: G61.81 Chronic inflammatory demyelinating polyneuritis (principal); E11.9 Type 2 diabetes mellitus without complications

== ENCOUNTER → 2017-03-24 08:04 | Outpatient (CLI) | payer MEDICARE ==
[2016-09-05 15:16] VITALS: BMI 45.9
== END | disposition home or self-care (01) ==
LOC: D.US 08:00
DX: R10.11 Right upper quadrant pain (principal)

== ENCOUNTER → 2017-12-02 08:13 | Outpatient (CLI) | payer MEDICARE ==
[2016-09-05 15:16] VITALS: BMI 45.9
== END | disposition home or self-care (01) ==
LOC: D.RAD 11-27 08:00
DX: R13.10 Dysphagia, unspecified (principal)

== ENCOUNTER → 2018-03-04 15:34 | Outpatient (CLI) | payer MEDICARE ==
[2016-09-05 15:16] VITALS: BMI 45.9
== END | disposition home or self-care (01) ==
LOC: D.US 15:30
DX: R60.0 Localized edema (principal)

== ENCOUNTER 2018-04-03 05:53 | Observation (INO) | payer MEDICARE ==
[~2018-04-03] VITALS: Ht 170.2 cm; Wt 132.7 kg
--- NOTE | ~2018-04-03 | CN ---
PATIENT NAME:WONG MILES MEDICAL RECORD: [id number] : 82 LOCATION:[facility] [address] ADMIT DATE: 04/03/18 ACCOUNT: [id number] CONSULTING PHYSICIAN: YESENIA REEVES MD REFERRING PHYSICIAN: ARIADNA WALKER DO DATE OF CONSULTATION: 04/03/2018 HISTORY OF PRESENT ILLNESS: A 37-year-old with history of hypertension, hyperlipidemia, diabetes mellitus as well as previous history of chronic inflammatory demyelinating polyneuropathy, presented with chest pain for 3-4 days, aggressive in nature, initially with exertion, now with rest pain yesterday. Saw primary care and was referred for outpatient evaluation. However, symptoms acutely worsened and presented to the ER. We are asked to see her concerning her cardiovascular status. PAST MEDICAL HISTORY: Includes: 1. History of hypertension. 2. Hyperlipidemia. 3. Diabetes mellitus. 4. Chronic inflammatory polyneuropathy. Last IVIG approximately 18 months ago. ALLERGIES: INCLUDE MORPHINE, CODEINE, HYDROCODONE, ACETAMINOPHEN, AND SHRIMP. MEDICATIONS: Typically include Flexeril 10 mg p.o. daily, carvedilol 325 b.i.d., Wellbutrin 300 mg p.o. every day, Neurontin 600 t.i.d., Topamax 25 every day, tramadol 50 every 6 hours p.r.n., Januvia 100 mg p.o. every day. SOCIAL HISTORY: Nonsmoker, nondrinker. No set exercise program. REVIEW OF SYSTEMS: The patient reports easy bruising but reports no swollen glands. The patient reports no fever, no night sweats, no significant weight gain, no significant weight loss. No significant exercise tolerance. The patient reports no dry eyes, no irritation, no vision change. Patient reports no difficulty hearing and no ear pain. Patient reports no frequent nose bleeds or nose and sinus problems. Patient reports on arm pain on exertion. No shortness of breath while lying down. No history of heart murmur. Patient reports no cough, no wheezing or coughing up blood. Patient reports no abdominal pain, no vomiting. Normal appetite. No diarrhea and not vomiting blood. No nausea and no constipation. Patient reports no incontinence. No difficulty urinating. No hematuria. No increased frequency. Patient reports no muscle aches. No weakness, no arthralgias, no back pain. No swelling of the extremities. Patient reports no abnormal mole, no jaundice, no rashes. Reports no loss of consciousness. No weakness and no numbness. No seizures, dizziness, or headaches. The patient reports no depression, no sleep disturbance, feeling safe in a relationship and no alcohol abuse. Patient reports on fatigue. Reports no runny nose or sinus pressure. No itching, no hives, and no frequent sneezing. PHYSICAL EXAMINATION: GENERAL: Pleasant female, in no acute distress. VITAL SIGNS: Blood pressure 140/95, pulse 75 and regular. HEENT: Normocephalic, atraumatic. NECK: No bruits noted. HEART: Regular. LUNGS: Lung carter are clear. CONSULT REPORT [id number] WONG MILES ABDOMEN: Soft, nontender. EXTREMITIES: Pulses 2+. There is no edema. DIAGNOSTIC DATA: ECG shows nonspecific ST-T changes laterally consistent with LVH or ischemia. IMPRESSION: Progressive anginal pattern with rest symptomology. PLAN: Plan for angiography, intervention based on above. TRANSINT:[id number] Voice Confirmation ID: [id number] DOCUMENT ID: [id number] YESENIA REEVES MD CC: [id number] DICTATION DATE: 04/03/18 1140 ELECTRON BEAM OPERATOR: 04/03/18 1250 ADM IN [facility] [address] [place] [address]
--- NOTE | ~2018-04-03 | OP ---
PATIENT NAME: WONG MILES MEDICAL RECORD: [id number] :82 LOCATION:D.M2 D.2131 ADMISSION DATE:04/03/18 SURGEON: YESENIA REEVES MD DATE OF OPERATION: 04/04/2018 PROCEDURE: Left heart catheterization, selective coronary angiography, right femoral artery approach. CATHETERS: A 5-Maori sheath, 5/4 left and right Bebo, 5/4 pig. The procedure was well tolerated. The patient was returned to the burgos. Sheath was removed. ExoSeal device was placed. FINDINGS: Left ventriculography in 30-degree COLE view: Normal wall motion and normal systolic function. CORONARY ANATOMY: LEFT MAIN: Left main is free of disease. LAD: Free of disease in the diagonal system. CIRCUMFLEX: Free of disease in the marginal system. RIGHT CORONARY ARTERY: Dominant artery, gives rise to PDA, free of disease. IMPRESSION: Normal LV systolic function. Normal coronary anatomy. TRANSINT:[id number] Voice Confirmation ID: [id number] DOCUMENT ID: [id number] YESENIA REEVES MD CC: [id number] DICTATION DATE: 04/04/18 1035 FORM SETTER: 04/04/18 1318 ADM IN [facility] [address] [place] [address]
--- NOTE | ~2018-04-03 | HEMODYNAMI ---
PATIENT:WONG MILES MEDICAL RECORD: [id number] : 82 [id number] ADMISSION DATE: 04/03/18 Generatedon:04/04/201810:27 Patient name: WONG MILES Patient #: [id number] SSN: : 1980 Date of study: 04/04/2018 Page: Of Hemodynamic Procedure Report Patient Data Patient Demographics Procedure consent was obtained First Name: WONG Gender: Female Last Name: JD : 1980 Middle Initial: E Age: 37 year(s) Patient #: [id number] Race: Black Additional ID: [id number] Contact details Address: [address] [place] [address] State: [place] City: [facility] Zip code: [address] Past Medical History Allergies Allergen Reaction Date Comments Reported Morphine 04/04/2018 Shellfish 04/04/2018 Codeine 04/04/2018 Other allergy 04/04/2018 hydrocodone Acetaminophen 04/04/2018 Admission Admission Data Admission Date: 04/03/2018 Admission Time: 7:27 Room #: D.2131 Height (in.): 70.15 BSA: 2.46 (m2) Height (cm.): 178.18 BMI: 41.81 (kg/m2) Weight (lbs.): 292.62 Weight (kg.): 132.73 Procedure Procedure Types Cath Procedure Diagnostic Procedure C [facility] w/Coronaries Procedure Description Procedure Date Procedure Date: 04/04/2018 Procedure Start Time: 10:15 Procedure End Time: 10:27 Procedure Staff Name Function Eliel Kam MD Performing Physician Susana Valdez RT Monitor Anand Seals RN Nurse Davey Blas RT Scrub Procedure Data Cath Procedure Fluoroscopy Diagnostic fluoroscopy Total fluoroscopy Time: 1.3 time: 1.3 min min Diagnostic fluoroscopy Total fluoroscopy dose: 396 dose: 396 mGy mGy Contrast Material Contrast Material Type Amount (ml) Isovue 300 61 Entry Location Entry Primary Successful Side Size Upsize Upsize Entry Closure Succes sful Closure Location (Fr) 1 (Fr) 2 (Fr) Remarks Device Remarks Femoral Right 5 Fr Exoseal artery Estimated blood loss: 5 ml Diagnostic catheters Device Type Used For End Catheter Placement MULTIPACK JL 4.0 5Fr Left Coronary catheter Angiography MULTIPACK 3DRC 5Fr Right Coronary catheter Angiography MULTIPACK Pigtail 5 Fr LV Angiography catheter Procedure Complications No complications Procedure Medications Medication Administration Route Dosage 0.9% NaCl I.V. 100 ml/hr Oxygen etCO2 Nasal cannula 2 l/min Heparin Flush Bag added to field 2 bags (1000units/500ml NS) Lidocaine 2% added to field 20 Versed I.V. 2 mg Fentanyl I.V. 100 mcg Hemodynamics Rest BSA: 2.46 (m2) O2 Consumption: Estimated: 263.14 (ml/min) O2 Consumption indexed : Estimated:106.97 (ml/min/m) Heart Rate: 79 (bpm) Pressure Samples Time Site Value (mmHg) Purpose Heart Use Rate(bpm) 10:21 LV 123/0,22 EDP 70 10:21 AO 138/138(79) Pullback 64 10:21 LV 106/16,17 Pullback 64 Gradients Valve Time Site 1 Site 2 Mean SEP/DFP Peak To Heart Use (mmHg) (sec/min) Peak Rate (mmHg) (bpm) Aortic 10:21 LV AO 0 17 0 64 106/16,17 138/138(79) Calculations Valve P-P Mean Valve Index Valve Source Name Gradient Area Flow (cm2) Aortic 0 0 0 0 Snapshots Pre Cath Intra NCS Post Cath Vital Signs Time Heart Resp SPO2 etCO2 NIBP (mmHg) Rhythm Pain Sedation Rate (ipm) (%) (mmHg) Status Level (bpm) 9:59:29 84 20 99 0 143/82(107) NSR 0 (11) 10(A) , No pain 10:03:57 76 19 100 36.4 141/83(102) NSR 0 (11) 10(A) , No pain 10:08:25 79 22 100 34.1 139/81(111) NSR 0 (11) 10(A) , No pain 10:12:52 78 21 100 34.8 140/84(104) NSR 0 (11) 10(A) , No pain 10:17:18 83 20 100 36.3 135/84(105) NSR 0 (11) 10(A) , No pain 10:26:23 82 13 99 43.2 143/133(140) NSR 0 (11) 10(A) , No pain Medications Time Medication Route Dose Verified Delivered Reason Notes Eff ectiveness by by 9:58:05 0.9% NaCl I.V. 100 Anand Anand Per ml/hr Arnel Seals physician RN RN 9:58:17 Oxygen etCO2 2 Anand Anand Per Nasal l/min Arnel Seals physician cannula RN RN 9:58:29 Heparin Flush added 2 Anand Anand used for Bag to bags Lorigan Arnel procedure (1000units/500ml field RN RN NS) 9:58:39 Lidocaine 2% added 20ml Anand Anand for local to vial Lorigan Lorigan anesthetic field RN RN 10:13:56 Versed I.V. 2 mg Anand Anand for Lorigan Lorigan sedation RN RN 10:14:04 Fentanyl I.V. 100 Anand Anand for mcg Lorigan Lorigan sedation RN corn press operator Log Time Note 9:31:31 Anand Seals RN sent for patient. Start room use. 9:36:39 Time tracking: Call back (After hours or weekends) 9:36:43 Plan of Care:Hemodynamics will remain stable., Cardiac rhythm will remain stable., Comfort level will be maintained., Respiratory function will remain adequate., Patient/ family verbilizes understanding of procedure., Procedure tolerated without complication., Recovers from procedure without complications.. 9:42:36 Patient Weight : 292.62 lbs 9:42:45 Patient Height : 70.15 inches 9:43:41 Patient received from PCU to CCL 1 Alert and oriented. Tansferred to table in Supine position. 9:45:24 PATIENT STATES LAST MENSTRUAL CYCLE 2 WEEKS AGO, NOT SEXUALLY ACTIVE. 9:50:19 HCG/Urine : pending 9:55:24 PATIENT IS ALLERGIC TO SHRIMP, BUT STATES SHE HAS HAD IODINE IN THE PAST W/O ISSUE. 9:56:34 Warm blankets applied, and paulo hugger turned on for patient comfort. 9:56:34 Correct patient and procedure confirmed by team. 9:56:36 Signed procedure consent form obtained from patient. 9:56:36 ECG and BP/O2 sat monitors applied to patient. 9:56:37 Full Disclosure recording started 9:58:05 0.9% NaCl 100 ml/hr I.V. was administered by Anand Seals RN; Per physician; 9:58:08 Vital chart was started 9:58:11 Rhythm: sinus rhythm 9:58:17 Oxygen 2 l/min etCO2 Nasal cannula was administered by Anand Seals RN; Per physician; 9:58:25 H&P Date Dictated: 04/03/2018 Within 30 days and on chart.. 9:58:27 Pre-procedure instructions explained to patient. 9:58:29 Heparin Flush Bag (1000units/500ml NS) 2 bags added to field was administered by Anand Seals RN; used for procedure; 9:58:30 Pre-op teaching completed and patient verbalized understanding. 9:58:37 Family in patients room. 9:58:39 Lidocaine 2% 20ml vial added to field was administered by Anand Seals RN; for local anesthetic; 9:58:40 Patient NPO since Midnight. 9:58:50 Patient allergic to Morphine 9:58:59 Patient allergic to Shellfish 9:59:08 Patient allergic to Codeine 9:59:48 Patient allergic to Other allergyhydrocodone 9:59:51 Patient allergic to Acetaminophen 9:59:58 Is the patient allergic to Iodine/contrast media? No. 10:00:00 Is patient on blood thinner?No 10:00:06 Patient diabetic? Yes. 10:00:12 If diabetic: On Metformin? Yes 10:00:15 If on Metformin: Last Dose? 04/02/2018 10:00:18 Previous problem with sedation/anesthesia? No ? 10:00:19 Snore? Yes 10:00:20 Sleep apnea? No 10:00:21 Deviated septum? No 10:00:22 Opens mouth fully? Yes 10:00:23 Sticks out tongue? Yes 10:00:24 Airway obstruction? No ? 10:00:26 Dentures? No ? 10:00:29 Pre procedure: right dorsailis pedis pulse 2+ Normal; easily identifiable; not easily obliterated 10:00:31 Modified Carlos Manuel's test Ulnar > 7 seconds. 10:00:34 Patient pain scale 0/10 ?. 10:00:41 IV patent on arrival in left antecubital with 0.9% NaCl at [facility]. 10:00:44 Lab results completed and on chart. 10:00:48 Right groin area was prepped with chlora-prep and draped in sterile fashion 10:00:48 Alarms reviewed by R. N. 10:00:49 Sharps counted by scrub and verified by R.N. 10:04:47 Use device set Femoral Dx 10:04:48 ACIST Syringe (27738) opened to sterile field. 10:04:49 Bag Decanter (2002S) opened to sterile field. 10:04:49 Medline Cath Pack ([id number]) opened to sterile field. 10:04:50 DIAGNOSTIC WIRE .035 260cm J wire (484918) opened to sterile field. 10:05:04 ACIST Hand Control (62707) opened to sterile field. 10:05:04 ACIST Manifold (07170) opened to sterile field. 10:05:06 DIAGNOSTIC Multipack 5Fr catheter set ([id number]) opened to sterile field. 10:05:09 SHEATH 5FR [place]arga (HOW202) opened to sterile field. 10:05:14 Tegaderm 4 x 4 (1626W) opened to sterile field. 10:10:07 Zero performed for pressure channel P1 10:11:04 HCG/Urine : negative 10:11:17 Physician paged 10:12:09 Baseline sample Acquired. 10:13:24 Final Timeout: patient, procedure, and site verified with staff and physician. All members of the team are in agreement. 10:13:26 Right groin site verified by team. 10:13:28 Physical assessment completed. ASA score P 2 - A patient with mild systemic disease as per Eliel Kam MD. 10:13:31 Sedation plan: IV Moderate Sedation Medication:Versed, Fentanyl 10:13:56 Versed 2 mg I.V. was administered by Anand Seals RN; for sedation; 10:14:04 Fentanyl 100 mcg I.V. was administered by Anand Seals RN; for sedation; 10:15:49 Procedure started. 10:15:53 Local anesthetic to right femoral artery with Lidocaine 2% by Eliel Kam MD.INITIAL ACCESS ONLY 10:16:36 A 5 Fr sheath was inserted into the Right Femoral artery 10:17:00 A MULTIPACK JL 4.0 5Fr catheter was advanced over the wire and used for Left Coronary Angiography. 10:18:33 Catheter removed. 10:18:41 A MULTIPACK 3DRC 5Fr catheter was advanced over the wire and used for Right Coronary Angiography. 10:19:46 Catheter removed. 10:20:18 A MULTIPACK Pigtail 5 Fr catheter was advanced over the wire and used for LV Angiography. 10:21:08 LV gram done using COLE 10:21:09 LV hemodynamics recorded. 10:21:20 EF : 50 % 10:21:31 Catheter removed. 10:21:33 EXOSEAL 5Fr (EX500) opened to sterile field. 10:21:50 Sheath removed intact; hemostasis achieved with Exoseal to the Right Femoral artery. 10:21:52 Procedure ended.(Physican Out) 10:22:02 Fluoroscopy time 01.30 minutes. 10:22:06 Fluoroscopy dose: 396 mGy 10:22:06 Flurop Dose total: 396 10:22:09 Contrast amount:Isovue 300 61ml. 10:22:10 Sharps counted by scrub and verified by R.N. 10:22:12 Insertion/operative site no bleeding no hematoma. 10:22:14 Post-op/insertion site Right Femoral artery dressed using a 4 x 4 and Tegaderm. 10:22:17 Post right femoral artery:stable, clean and dry 10:22:19 Post Procedure Pulses reassessed and unchanged 10:22:21 Post-procedure physical assessment completed. ASA score P 2 - A patient with mild systemic disease as per Eliel Kam MD. 10:22:23 Post procedure rhythm: unchanged. 10:22:25 Estimated blood loss: 5 ml 10:22:27 Post procedure instruction explained to patient.Patient verbalizes understanding. 10:22:27 Patient needs reinforcement of post procedure teaching. 10:22:32 Procedure Complication : No complications 10:22:34 See physician's report for complete and final results. 10:23:15 Procedure and supply charges have been captured, reviewed, submitted and are correct. 10:27:05 Vital chart was stopped 10:27:07 Report given to PCU. 10:27:10 Patient transfered to PCU with Bed. 10:27:20 Procedure ended. 10:27:20 Full Disclosure recording stopped 10:27:23 End room use (Document Last) Device Usage Item Name Manufacture Quantity Catalog Hospital Part Current Minimal L ot# / Number Charge Number Stock Stock Serial# Code ACIST Acist 1 83885 399370 654659 [id number] 20 Syringe Medical (19325) Systems Inc Bag Microtek 1 2001S 803230 04634 888938 5 Decanter Medical Inc. () Medline Medline 1 [id number] [id number] 20691 479638 5 Cath Pack ([id number]) DIAGNOSTIC St Lior 1 966795 870584 440239 723583 30 WIRE .035 260cm J wire (138337) ACIST Hand Acist 1 04744 555652 730671 764268 5 Control Medical (92374) Systems Inc ACIST Acist 1 62433 371883 528286 636938 5 Manifold Medical (52485) Systems Inc DIAGNOSTIC Cardinal 1 [id number] 084705 07023 749248 30 Multipack Health 5Fr catheter set (GB5641) SHEATH 5FR Terumo 1 OKD925 738782 111704 554097 5 Onarga (DMW100) Tegaderm 4 3M 1 1626W 726072 708641 281361 5 x 4 (1626W) MULTIPACK Cardinal 1 869410 5 JL 4.0 5Fr Health catheter MULTIPACK Cardinal 1 423648 5 3DRC 5Fr Health catheter MULTIPACK Cardinal 1 602240 5 Pigtail 5 Health Fr catheter EXOSEAL 5Fr Cardinal 1 EX500 326779 839261 386434 10 (EX500) Health Signature Audit Ashley Stage Time Signature Unsigned Intra-Procedure 04/04/2018 Susana 10:27:37 AM Counts RT(R) Signatures Monitor : Susana Signature : Counts RT Date : Time : [facility] [address] [place] [address]
[2018-04-03 06:42] LABS: BASOPHILS 0.6 % (0-2); EOSINOPHILS 2.4 % (0-7); HEMATOCRIT 36.4 % (36.0-48.0); HEMOGLOBIN 11.2 g/dL (12-16); IMMATURE GRANULOCYTES 0.3 % (0-5); LYMPHOCYTES 33.9 % (15-50); MCHC 30.8 g/dL (31.0-37.0); MCV 71.7 fL (80.0-100.0); MEAN PLATELET VOLUME 10.4 fL (7.4-10.4); NEUTROPHILS 54.8 % (40-80); PLATELET COUNT 292 10x3/uL (130-400); RBC 5.08 10x6/uL (4.00-5.40); RDW 16.3 % (11.5-14.5); WBC 6.6 10x3/uL (4.8-10.8)
[2018-04-03 06:53] VITALS: BP 136/84
--- NOTE | 2018-04-03 06:57 | NUR ---
REPORT GIVEN TO VALERIA PHILLIPS AT THIS TIME
[2018-04-03 06:59] LABS: ALBUMIN 3.1 g/dL (3.4-5.0); ALKALINE PHOSPHATASE 125 U/L (46-116); ALT (SGPT) 71 U/L (10-68); BILIRUBIN - TOTAL 0.47 mg/dL (0.2-1.3); CALC OSMOLALITY 280 mosm/kg (275-300); CARBON DIOXIDE 21.8 mmol/L (21.0-32.0); CHLORIDE - SERUM 105 mmol/L (98-107); CREATININE - SERUM 0.8 mg/dL (0.6-1.3); GLUCOSE 197 mg/dL (74-106); POTASSIUM - SERUM 3.9 mmol/L (3.5-5.1); PROTEIN - SERUM 7.3 g/dL (6.4-8.2); SODIUM 138 mmol/L (136-145); UREA NITROGEN 12 mg/dL (7-18); eGFR NON AFRICAN AMERICAN 86 mL/min (90-120)
[2018-04-03 07:05] LABS: LIPASE 279 U/L (73-393); PRO BNP 15 pg/mL (0-125)
[2018-04-03 07:06] LABS: TROPONIN-I < 0.017 ng/mL (0.000-0.060)
[2018-04-03 07:09] VITALS: BP 134/81
[2018-04-03 09:46] VITALS: BP 140/95; Ht 170.2 cm; Wt 132.7 kg
[2018-04-03] MEDS ORDERED: OMNICEF300 MG PO (10:57)
[2018-04-03 11:34] LABS: CKMB 0.7 U/L (0.0-3.6); CREATINE KINASE 146 UL (21-215); TROPONIN-I < 0.017 ng/mL (0.000-0.060)
[2018-04-03 11:57] VITALS: BP 140/95
--- NOTE | 2018-04-03 12:48 | NUR ---
NO FUTHER CHEST PAINS. UP TO BATHROOM PER SEF. WILL MONITOR
[2018-04-03 16:23] VITALS: BP 136/74
[2018-04-03 16:51] LABS: CKMB 0.7 U/L (0.0-3.6); CREATINE KINASE 118 UL (21-215); TROPONIN-I < 0.017 ng/mL (0.000-0.060)
--- NOTE | 2018-04-03 19:31 | NUR ---
PT IN BED MOTHER AT BEDSIDE. EXPLAINED TO PT THAT SHE WILL BE NPO AFTER MIDNIGHT FOR PROCEDURE TOMORROW. PROVIDED TURKEY SANDWICH, LEMON EMMONAK, AND ICE CREAM PER REQUEST. ANSWERED QUESTIONS REGARDING MEDICATIONS. PT DENIES FURTHER NEEDS AT THIS TIME.
[2018-04-03 21:33] VITALS: BP 130/71
[2018-04-04 01:19] VITALS: BP 133/73
--- NOTE | 2018-04-04 04:06 | NUR ---
PT RESTING IN BED WITH RESPS EVEN/NONLABORED. NO DISTRESS. MONITOR AND CPOC.
[2018-04-04 04:57] VITALS: BP 163/93
[2018-04-04 06:12] LABS: BASOPHILS 0.3 % (0-2); EOSINOPHILS 1.6 % (0-7); HEMATOCRIT 33.3 % (36.0-48.0); HEMOGLOBIN 10.4 g/dL (12-16); IMMATURE GRANULOCYTES 0.3 % (0-5); LYMPHOCYTES 32.7 % (15-50); MCH 22.3 pg (26.0-34.0); MCHC 31.2 g/dL (31.0-37.0); MCV 71.3 fL (80.0-100.0); MEAN PLATELET VOLUME 10.5 fL (7.4-10.4); MONOCYTES 8.8 % (2-11); NEUTROPHILS 56.3 % (40-80); PLATELET COUNT 283 10x3/uL (130-400); RBC 4.67 10x6/uL (4.00-5.40)
[2018-04-04 06:17] LABS: WBC 10.3 10x3/uL (4.8-10.8)
[2018-04-04 06:35] LABS: ALBUMIN 2.9 g/dL (3.4-5.0); ALKALINE PHOSPHATASE 110 U/L (46-116); ALT (SGPT) 138 U/L (10-68); BILIRUBIN - TOTAL 0.21 mg/dL (0.2-1.3); CALC OSMOLALITY 279 mosm/kg (275-300); CALCIUM 7.8 mg/dL (8.5-10.1); CARBON DIOXIDE 23.4 mmol/L (21.0-32.0); CHLORIDE - SERUM 106 mmol/L (98-107); CREATININE - SERUM 0.9 mg/dL (0.6-1.3); GLUCOSE 135 mg/dL (74-106); MAGNESIUM - SERUM 2.1 mg/dL (1.8-2.4); POTASSIUM - SERUM 3.6 mmol/L (3.5-5.1); SODIUM 139 mmol/L (136-145); UREA NITROGEN 13 mg/dL (7-18); eGFR NON AFRICAN AMERICAN 75 mL/min (90-120)
[2018-04-04 08:32] VITALS: BP 109/64
[2018-04-04 10:09] LABS: HCG SERUM NEGATIVE (NEGATIVE)
--- NOTE | 2018-04-04 10:15 | NUR ---
PT GONE FOR HEART CATH
--- NOTE | 2018-04-04 11:35 | NUR ---
PT RETURNED FROM HEART CATH VITAL SIGNS STABLE NO BLEEDING FROM RIGHT GROIN NO PROBLEMS AT THIS TIME WILL MONITER
[2018-04-04 12:21] VITALS: BP 137/65
--- NOTE | 2018-04-04 14:39 | NUR ---
ALERT AND ORIENTED X4. RESTING IN BED. NO SIGNS OF DISTRESS. SINUS RHYTHM ON TELEMETRY. ALEXA FONSECA. RESUMES PLAN OF CARE AND SAFETY PRECAUTIONS.
[2018-04-04 16:31] VITALS: BP 125/72
--- NOTE | 2018-04-04 18:41 | NUR ---
PT DISCHARGED TO HOME VIA WHEELCHAIR REVIEWED DISCHARGE SUMMARY AND MEDS WITH PT NO QUESTIONS TOLERATED WELL
--- NOTE | 2018-04-05 11:57 | MORECARE ---
CASE MANAGEMENT DISCHARGE SUMMARY PATIENT: WONG MILES UNIT: [id number] ADM DATE: 04/03/18 AGE: 37 : 82 SEX: F ROOM/BED: D.2131 AUTHOR: ISRAEL WALDROP PHYSICIAN: REFERRING PHYSICIAN: ARIADNA WALKER DO DATE OF SERVICE: 04/05/18 Discharge Plan Patient Name: WONG MILES Facility: [facility]:[place] : 1980 Planned Disposition: Home Anticipated Discharge Date: 04/04/18 Discharge Date: 04/04/2018 Expected LOS: 1 Initial Reviewer: [id number] Initial Review Date: 04/05/2018 Generated: 04/05/18 12:56 pm Patient Name: WONG MILES Page [phone] at 1157 All edits/amendments must be made on the electronic document DICTATION DATE: 04/05/18 1156 QUALITY ASSURANCE COORDINATOR: MARGIE 04/05/18 1156 RPT#: [id number] DC DATE:04/04/18 STATUS: DIS IN [facility] [address] [place] [address] END OF REPORT
== END 2018-04-04 18:42 | disposition home or self-care (01) ==
LOC: D.ER 05:53 → D.EDHOLD 07:27 → OBSVTIME 07:27 → D.EDHOLD 07:27 → D.M2 07:47
PROVIDERS: Emergency Medicine; Family Medicine; Internal Medicine Interventional Cardiology; ADMIT Family Medicine
DX: I20.9 Angina pectoris, unspecified (principal); E11.65 Type 2 diabetes mellitus with hyperglycemia; E11.42 Type 2 diabetes mellitus with diabetic polyneuropathy; I10 Essential (primary) hypertension; E78.5 Hyperlipidemia, unspecified

== ENCOUNTER 2018-07-09 09:10 | Emergency (ER) | payer MEDICARE ==
[~2018-07-09] VITALS: Ht 170.2 cm; Wt 127.3 kg
[~2018-07-09 09:10] MED LIST changes: +OMNICEF300 MG PO
[2018-07-09 09:18] VITALS: Ht 170.2 cm; Wt 127.3 kg
[2018-07-09 09:28] LABS: BASOPHILS 0.4 % (0-2); EOSINOPHILS 1.1 % (0-7); HEMATOCRIT 34.9 % (36.0-48.0); IMMATURE GRANULOCYTES 0.1 % (0-5); LYMPHOCYTES 34.2 % (15-50); MCH 22.7 pg (26.0-34.0); MCHC 31.5 g/dL (31.0-37.0); MCV 72.1 fL (80.0-100.0); MEAN PLATELET VOLUME 10.4 fL (7.4-10.4); MONOCYTES 7.1 % (2-11); NEUTROPHILS 57.1 % (40-80); PLATELET COUNT 288 10x3/uL (130-400); RBC 4.84 10x6/uL (4.00-5.40); RDW 14.8 % (11.5-14.5); WBC 7.9 10x3/uL (4.8-10.8)
[2018-07-09 09:38] LABS: APTT 25.4 SECONDS (22.8-39.4); INR 1.04 (0.85-1.17); PROTIME 13.1 SECONDS (11.6-15.0)
[2018-07-09 09:40] LABS: ALBUMIN 3.1 g/dL (3.4-5.0); ALKALINE PHOSPHATASE 124 U/L (46-116); ALT (SGPT) 32 U/L (10-68); BILIRUBIN - TOTAL 0.62 mg/dL (0.2-1.3); CALC OSMOLALITY 274 mosm/kg (275-300); CALCIUM 8.2 mg/dL (8.5-10.1); CARBON DIOXIDE 26.3 mmol/L (21.0-32.0); CHLORIDE - SERUM 101 mmol/L (98-107); CREATININE - SERUM 0.9 mg/dL (0.6-1.3); GLUCOSE 189 mg/dL (74-106); POTASSIUM - SERUM 3.4 mmol/L (3.5-5.1); PROTEIN - SERUM 8.3 g/dL (6.4-8.2); SODIUM 136 mmol/L (136-145); UREA NITROGEN 8 mg/dL (7-18); eGFR NON AFRICAN AMERICAN 75 mL/min (90-120)
[2018-07-09 09:51] LABS: CKMB 0.9 U/L (0.0-3.6); CREATINE KINASE 138 UL (21-215)
[2018-07-09 09:52] LABS: TROPONIN-I < 0.017 ng/mL (0.000-0.060)
[2018-07-09] MEDS ORDERED: ADIPEX-P37.5 M1 PO (09:54)
[2018-07-09] MEDS ORDERED: OMEPRAZOLE40 MG PO (09:54)
[2018-07-09] MEDS ORDERED: ALDACTONE25 MG PO (09:55)
[2018-07-09 11:04] LABS: AMYLASE - SERUM 40 U/L (25-115); LIPASE 229 U/L (73-393)
[2018-07-09] MEDS ORDERED: ZOFRAN ODT4 MG/UDTAB PO (11:23)
[2018-07-09 11:37] VITALS: BP 168/101
== END 2018-07-09 11:38 | disposition home or self-care (01) ==
LOC: D.ER 09:10
PROVIDERS: Family Medicine
DX: R07.9 Chest pain, unspecified (principal); K52.9 Noninfective gastroenteritis and colitis, unspecified; I10 Essential (primary) hypertension; E11.9 Type 2 diabetes mellitus without complications

== ENCOUNTER 2018-09-14 16:11 | Emergency (ER) | payer MEDICARE, MEDICAID ==
[~2018-09-14] VITALS: Ht 170.2 cm; Wt 128.2 kg
[~2018-09-14 16:11] MED LIST changes: +ADIPEX-P37.5 M1 PO; +ALDACTONE25 MG PO; +OMEPRAZOLE40 MG PO; +ZOFRAN ODT4 MG/UDTAB PO
[2018-09-14 16:21] VITALS: Ht 170.2 cm; Wt 128.2 kg
[2018-09-14] MEDS ORDERED: IBUPROFEN800 MG PO (16:22)
[2018-09-14] MEDS ORDERED: CYMBALTA20 MG PO (16:23)
[2018-09-14] MEDS ORDERED: BUPROPION HCL100 MG PO (16:23)
[2018-09-14 16:50] LABS: BASOPHILS 0.2 % (0-2); EOSINOPHILS 1.1 % (0-7); HEMATOCRIT 34.9 % (36.0-48.0); HEMOGLOBIN 11.2 g/dL (12-16); IMMATURE GRANULOCYTES 0.2 % (0-5); LYMPHOCYTES 22.1 % (15-50); MCH 22.6 pg (26.0-34.0); MCHC 32.1 g/dL (31.0-37.0); MCV 70.4 fL (80.0-100.0); MEAN PLATELET VOLUME 10.5 fL (7.4-10.4); MONOCYTES 5.9 % (2-11); NEUTROPHILS 70.5 % (40-80); PLATELET COUNT 292 10x3/uL (130-400); RBC 4.96 10x6/uL (4.00-5.40); RDW 15.4 % (11.5-14.5); WBC 8.4 10x3/uL (4.8-10.8)
--- NOTE | 2018-09-14 16:50 | NUR ---
DR. FELIX NOTIFIED AND 1:1 SITTER OBSERVATION ORDERED. SITTER AT BEDSIDE. NOTIFIED CHARGE NURSE AND ATTENDING IN REGARDS TO ASSESSMENT FINDINGS. RESOURCES GIVEN TO PT AND SAFETY PLAN INITIATED.
[2018-09-14 16:56] LABS: APPEARANCE CLEAR (CLEAR); BILIRUBIN NEGATIVE (NEGATIVE); COLOR YELLOW (YELLOW); GLUCOSE NEGATIVE (NEGATIVE); KETONE NEGATIVE (NEGATIVE); NITRITE NEGATIVE (NEGATIVE); PROTEIN TRACE mg/dL (NEGATIVE); UROBILINOGEN NORMAL (NORMAL)
[2018-09-14 17:00] LABS: UDS - AMPHET POSITIVE QUAL (NEGATIVE); UDS - BARB NEGATIVE QUAL (NEGATIVE); UDS - BENZO NEGATIVE QUAL (NEGATIVE); UDS - COCAINE NEGATIVE QUAL (NEGATIVE); UDS - OPIATE NEGATIVE QUAL (NEGATIVE); UDS - PCP NEGATIVE QUAL (NEGATIVE); UDS - THC POSITIVE QUAL (NEGATIVE)
[2018-09-14 17:31] LABS: ALBUMIN 3.3 g/dL (3.4-5.0); ANION GAP 11.1 mmol/L (8-16); BILIRUBIN - TOTAL 0.26 mg/dL (0.2-1.3); CALCIUM 8.5 mg/dL (8.5-10.1); CARBON DIOXIDE 26.5 mmol/L (21.0-32.0); CREATININE - SERUM 0.9 mg/dL (0.6-1.3); MAGNESIUM - SERUM 1.9 mg/dL (1.8-2.4); POTASSIUM - SERUM 3.6 mmol/L (3.5-5.1); PROTEIN - SERUM 8.1 g/dL (6.4-8.2)
[2018-09-14 19:28] LABS: HCG URINE NEGATIVE (NEGATIVE)
[2018-09-14 23:39] VITALS: BP 148/88
== END 2018-09-14 23:40 ==
LOC: D.ER 16:11
PROVIDERS: Family Medicine
DX: F32.9 Major depressive disorder, single episode, unspecified (principal); R45.851 Suicidal ideations; F12.90 Cannabis use, unspecified, uncomplicated; E11.9 Type 2 diabetes mellitus without complications; I10 Essential (primary) hypertension; K21.9 Gastro-esophageal reflux disease without esophagitis

== ENCOUNTER 2019-01-31 19:48 | Emergency (ER) | payer MEDICARE, MEDICAID ==
[~2019-01-31] VITALS: Ht 170.2 cm; Wt 129.5 kg
[~2019-01-31 19:48] MED LIST changes: +BUPROPION HCL100 MG PO; +CYMBALTA20 MG PO; +IBUPROFEN800 MG PO
[2019-01-31 19:55] VITALS: Ht 170.2 cm; Wt 129.5 kg
[2019-01-31] MEDS ORDERED: LOTENSIN40 MG PO (19:59)
[2019-01-31] MEDS ORDERED: LATUDA40 MG PO (20:01)
[2019-01-31] MEDS ORDERED: TORADOL10 MG PO (21:09)
[2019-01-31 22:09] VITALS: BP 139/82
== END 2019-01-31 22:11 | disposition home or self-care (01) ==
LOC: D.ER 19:48
DX: M25.572 Pain in left ankle and joints of left foot (principal); M21.40 Flat foot [pes planus] (acquired), unspecified foot; I10 Essential (primary) hypertension; E11.9 Type 2 diabetes mellitus without complications; F31.9 Bipolar disorder, unspecified

== ENCOUNTER 2019-03-08 19:42 | Emergency (ER) | payer MEDICARE, MEDICAID ==
[~2019-03-08] VITALS: Ht 170.2 cm; Wt 136.4 kg
[~2019-03-08 19:42] MED LIST changes: +LATUDA40 MG PO; +LOTENSIN40 MG PO; +TORADOL10 MG PO
[2019-03-08 19:44] VITALS: Ht 170.2 cm; Wt 136.4 kg
[2019-03-08] MEDS ORDERED: TRAZODONE HCL150 MG PO (19:46)
[2019-03-08] MEDS ORDERED: EFFEXOR75 MG PO (19:47)
[2019-03-08] MEDS ORDERED: EFFEXOR100 MG PO (19:47)
[2019-03-08 20:04] LABS: BASOPHILS 0.3 % (0-2); EOSINOPHILS 1.9 % (0-7); HEMOGLOBIN 11.9 g/dL (12-16); IMMATURE GRANULOCYTES 0.2 % (0-5); LYMPHOCYTES 41.2 % (15-50); MCH 22.3 pg (26.0-34.0); MCHC 31.3 g/dL (31.0-37.0); MCV 71.2 fL (80.0-100.0); MEAN PLATELET VOLUME 9.9 fL (7.4-10.4); MONOCYTES 8.6 % (2-11); NEUTROPHILS 47.8 % (40-80); RBC 5.34 10x6/uL (4.00-5.40); RDW 15.7 % (11.5-14.5)
[2019-03-08 20:20] LABS: ANION GAP 10.9 mmol/L (8-16); CARBON DIOXIDE 26.4 mmol/L (21.0-32.0); CREATININE - SERUM 0.9 mg/dL (0.6-1.3); POTASSIUM - SERUM 3.3 mmol/L (3.5-5.1)
[2019-03-08 20:22] LABS: PLATELET COUNT 366 10x3/uL (130-400)
[2019-03-08 20:24] LABS: APPEARANCE CLEAR (CLEAR); COLOR YELLOW (YELLOW); GLUCOSE NEGATIVE (NEGATIVE); HCG URINE NEGATIVE (NEGATIVE); KETONE NEGATIVE (NEGATIVE); NITRITE NEGATIVE (NEGATIVE); PROTEIN NEGATIVE (NEGATIVE); SPECIFIC GRAVITY 1.015 (1.005-1.020)
[2019-03-08 20:25] LABS: BILIRUBIN NEGATIVE (NEGATIVE); UROBILINOGEN NORMAL (NORMAL)
[2019-03-08 20:27] LABS: ALBUMIN 3.5 g/dL (3.4-5.0); BILIRUBIN - TOTAL 0.21 mg/dL (0.2-1.3); MAGNESIUM - SERUM 1.9 mg/dL (1.8-2.4); PROTEIN - SERUM 7.6 g/dL (6.4-8.2)
[2019-03-08 20:34] LABS: UDS - AMPHET NEGATIVE QUAL (NEGATIVE); UDS - BARB NEGATIVE QUAL (NEGATIVE); UDS - BENZO NEGATIVE QUAL (NEGATIVE); UDS - COCAINE NEGATIVE QUAL (NEGATIVE); UDS - OPIATE NEGATIVE QUAL (NEGATIVE); UDS - PCP NEGATIVE QUAL (NEGATIVE); UDS - THC NEGATIVE QUAL (NEGATIVE)
--- NOTE | 2019-03-08 20:54 | NUR ---
DR FELIX NOTIFIED AND SITTER ORDERED. SITTER AT BEDSIDE. NOTIFIED CHARGE NURSE AND ATTENDING IN REGARDS TO ASSESSMENT FINDINGS. RESOURCES GIVEN AND REVIEWED WITH PATIENT. PATIENT VERBALIZES UNDERSTANDING. SAFETY PLAN INITIATED.
[2019-03-08 22:20] VITALS: BP 112/77
== END 2019-03-08 22:21 ==
LOC: D.ER 19:42
PROVIDERS: Family Medicine
DX: R45.851 Suicidal ideations (principal); I10 Essential (primary) hypertension; E11.40 Type 2 diabetes mellitus with diabetic neuropathy, unspecified